=== PATIENT | female | born 1960 | race Caucasian/White ===

== ENCOUNTER 2017-07-20 12:58 | Emergency (ER) | payer BC ==
[2017-07-20 14:28] VITALS: BP 103/64
--- NOTE | 2017-07-20 15:48 | UC ---
Abdominal Pain Female HPI - HPI Summary HPI Summary: ONSET OF CRAMPY, LLQ PAIN YESTERDAY MORNING. FEELS BLOATED. DID NOT SLEEP WELL LAST NIGHT DUE TO DISCOMFORT. DENIES FEVER, N/V/D. DENIES URINARY SX. HAS A H/O KIDNEY STONES BUT STATES THIS FEELS DIFFERENT. HAS HAD LEFT OOPHERECTOMY DUE TO TORSION. - History of Current Complaint Chief Complaint: UCAbdominalPain Stated Complaint: ABD PAIN Time Seen by Provider: 07/20/17 15:24 Hx Obtained From: Patient Onset/Duration: Sudden Onset, Lasting Days - 1 DAY, Still Present Timing: Constant Severity Initially: Moderate Severity Currently: Moderate Pain Intensity: 5 Pain Scale Used: 0-10 Numeric Location: Discrete At: LLQ Radiates: No Character: Cramping Aggravating Factor(s): Nothing Alleviating Factor(s): Nothing Associated Signs and Symptoms: Negative: Fever, Back Pain, Blood in Stool, Urinary Symptoms, Nausea, Vomiting, Diarrhea Allergies/Adverse Reactions: Allergies Allergy/AdvReac Type Severity Reaction Status Date / Time acetaminophen [From Vicodin] Allergy Headache Verified 07/20/17 14:30 amoxicillin Allergy Hives Verified 07/20/17 14:30 hydrocodone [From Vicodin] Allergy migraine Verified 07/20/17 14:31 Sulfa (Sulfonamide Allergy Rash Verified 07/20/17 14:30 Antibiotics) monostat Allergy Hives Uncoded 10/15/13 15:49 Home Medications: Home Medications Bismuth Subsalicylate [Pepto-Bismol] 525 mg PO SEE INSTRUCTIONS PRN 07/20/17 [ History Confirmed 07/20/17] Ca, Magnesium 1 each PO DAILY 07/20/17 [History Confirmed 07/20/17] Cholecalciferol (Vitamin D3) [Vitamin D3] 12,000 units PO DAILY 07/20/17 [ History Confirmed 07/20/17] L.acidoph,Paracasei, B.lactis [Probiotic] 1 each PO DAILY 07/20/17 [History Confirmed 07/20/17] lamoTRIgine [Lamotrigine] 50 mg PO DAILY 07/20/17 [History Confirmed 07/20/17] PMH/Surg Hx/FS Hx/Imm Hx GI/ History: Kidney Stones Neurological History: Migraine - Surgical History Surgical History: Yes Surgery Procedure, Year, and Place: hysterectomy-~2007. left ovary removed ~ 2008. breast biopsy - Family History Known Family History: Negative: Hypertension - Social History Alcohol Use: None Substance Use Type: None Smoking Status (MU): Never Smoked Tobacco Review of Systems Constitutional: Negative Skin: Negative Respiratory: Negative Cardiovascular: Palpitations Gastrointestinal: Abdominal Pain Genitourinary: Negative All Other Systems Reviewed And Are Negative: Yes Physical Exam Triage Information Reviewed: Yes Appearance: Well-Appearing, No Pain Distress, Well-Nourished Vital Signs: Initial Vital Signs Temp 99.8 F 07/20/17 14:17 Pulse 64 07/20/17 14:17 Resp 18 07/20/17 14:17 BP 103/64 07/20/17 14:17 Pulse Ox 100 07/20/17 14:17 Vital Signs Reviewed: Yes Eyes: Positive: Conjunctiva Clear ENT: Positive: Hearing grossly normal Neck: Positive: Supple, Nontender, No Lymphadenopathy Respiratory Exam: Normal Cardiovascular Exam: Normal Abdomen Description: Positive: Soft, CVA Tenderness (L) - EQUIVOCAL, Other: - TTP LLQ. NO REBOUND OR RIGIDITY. Negative: CVA Tenderness (R), Distended, Guarding Bowel Sounds: Positive: Present Musculoskeletal: Positive: No Edema Neurological: Positive: Alert Psychological: Positive: Age Appropriate Behavior Skin: Negative: rashes Diagnostics - Laboratory Diagnostic Studies Completed/Ordered: URINE DIP SP. GR. 1.015, 2+ BLOOD - Radiology CT ABD/PELVIS W/O CONTRAST Xray Interpretation: Positive (See Comments) - THERE IS DIVERTICULOSIS OF THE DISTAL COLON WITH MUCOSAL THICKENING OF THE DISTAL COLON AND ASSOCIATED INFLAMMATORY CHANGE IN SMALL AMOUNT OF FREE FLUID WITHIN THE PELVIS. THE DIFFERENTIAL INCLUDES DIVERTICULITIS OR COLITIS OF THE DISTAL COLON. THERE IS NO LOCULATED FLUID COLLECTION TO SUGGEST ABSCESS. Radiology Interpretation Completed By: Radiologist Abd Pain Female Course/Dx - Differential Dx/Diagnosis Provider Diagnoses: ACUTE DIVERTICULITIS Discharge - Sign-Out/Discharge Documenting (check all that apply): Discharge/Admit/Transfer - Discharge Plan Condition: Stable Disposition: HOME Prescriptions: Ciprofloxacin TAB* [Cipro 500 MG TAB*] 500 mg PO BID #20 tab metroNIDAZOLE [Flagyl 500 MG TAB] 500 mg PO TID #30 tab Patient Education Materials: Diverticulitis (ED), Hematuria (ED), Diverticulitis Diet (ED) Referrals: Fariha Petersen MD [Primary Care Provider] - 2 Weeks Additional Instructions: CT SCAN TODAY IS SUGGESTIVE OF DIVERTICULITIS. TAKE ANTIBIOTICS FOR FULL 10 DAYS. OTC IBUPROFEN NEEDED FOR DISCOMFORT. STAY WELL HYDRATED. AVOID FOODS SUCH NUTS, SEEDS, CORN, RAW/LEAFY VEGGIES DISCUSSED. GO TO THE ER WITHOUT FAIL IF YOU DEVELOP WORSENING PAIN, FEVER, NAUSEA, VOMITING OR ANY OTHER CONCERNING SYMPTOMS. FOLLOW-UP WITH YOUR PCP IN 2 WEEKS TO RECHECK YOUR URINE TO ENSURE THE BLOOD HAS CLEARED. IF NOT YOU WILL NEED TO SEE A UROLOGIST FOR FURTHER EVALUATION. - Billing Disposition and Condition Condition: STABLE Disposition: HOME
--- NOTE | 2017-07-20 16:05 | RAD ---
CLINICAL HISTORY: Left lower quadrant pain, hematuria COMPARISON: March 09, 2007 TECHNIQUE: Multiple contiguous axial CT scans were obtained of the abdomen and pelvis, without intravenous contrast enhancement. Coronal and sagittal multiplanar reformations are submitted for review. Oral contrast was not administered. FINDINGS: The study is limited by the lack of intravenous contrast. This limits evaluation of the solid organs and vasculature. LUNG BASES: The lung bases are clear. LIVER: The liver is normal in shape, size, contour, and attenuation. BILE DUCTS: There is no intrahepatic or extrahepatic biliary dilatation. GALLBLADDER: The gallbladder is normal, without pericholecystic inflammatory change. PANCREAS: The pancreas is normal, without mass or ductal dilatation. SPLEEN: Normal in size and appearance. UPPER GI TRACT: Evaluation of the gastrointestinal tract is limited by incomplete gastric distention. The upper GI tract is unremarkable. SMALL BOWEL AND MESENTERY: The small bowel is normal in contour, course, and caliber. There is no obstruction or dilatation. COLON: There is mucosal thickening of the distal sigmoid colon. Multiple diverticula are noted. There is stranding of the pericolic fat with small amount of free fluid within the pelvis. There is a tubular, vermiform, hollow viscus that is blind ending, and originates from the cecum, consistent with a normal appendix. There is no periappendiceal inflammatory change. This is best seen on axial images 70 through 104 ADRENALS: Normal bilaterally. KIDNEYS: The kidneys are normal in shape, size, contour, and axis. There is no hydronephrosis or nephrolithiasis. BLADDER: The bladder is smooth in contour. PELVIC ORGANS: The pelvic organs are not visualized. AORTA: The aorta is normal. IVC: Unremarkable LYMPH NODES: There is no lymphadenopathy by size criteria. ABDOMINAL WALL: There is no evidence for abdominal wall hernia. BONES AND SOFT TISSUES: Mild degenerative changes are noted. OTHER: None IMPRESSION: THERE IS DIVERTICULOSIS OF THE DISTAL COLON WITH MUCOSAL THICKENING OF THE DISTAL COLON AND ASSOCIATED INFLAMMATORY CHANGE IN SMALL AMOUNT OF FREE FLUID WITHIN THE PELVIS. THE DIFFERENTIAL INCLUDES DIVERTICULITIS OR COLITIS OF THE DISTAL COLON. THERE IS NO LOCULATED FLUID COLLECTION TO SUGGEST ABSCESS.
== END 2017-07-20 16:23 | disposition home or self-care (01) ==
LOC: UCCORT 12:58
DX: K57.92 Diverticulitis of intestine, part unspecified, without perforation or abscess without bleeding (principal); Z88.6 Allergy status to analgesic agent; Z88.0 Allergy status to penicillin; Z88.8 Allergy status to other drugs, medicaments and biological substances
CPT/HCPCS: 74176; 81003; 99212; G0463

== ENCOUNTER 2019-05-04 11:02 | Emergency (ER) | payer BC ==
[2019-05-04 14:00] VITALS: BP 99/65
--- NOTE | 2019-05-04 14:10 | UC ---
Lower Extremity/Ankle HPI - HPI Summary HPI Summary: 58-year-old female presenting with left lateral foot pain 2-3 weeks. Denies known trauma or injury other than back in January when she stepped off of a curb and landed wrong on that foot. States that that pain resolved after a few days without any treatment. Denies any swelling or bruising. Denies decreased range of motion. Denies numbness and tingling. Denies difficulty ambulating. Does note that the pain is worse with involuting and weightbearing. Patient states she does a lot of walking around the chart for exercise." - History of Current Complaint Chief Complaint: UCLowerExtremity Stated Complaint: LEFT FOOT PAIN Hx Obtained From: Patient Pain Intensity: 1 Pain Scale Used: 0-10 Numeric - Allergies/Home Medications Allergies/Adverse Reactions: Allergies Allergy/AdvReac Type Severity Reaction Status Date / Time acetaminophen [From Vicodin] Allergy Headache Verified 05/04/19 14:00 amoxicillin Allergy Hives Verified 05/04/19 14:00 hydrocodone [From Vicodin] Allergy migraine Verified 05/04/19 14:00 Sulfa (Sulfonamide Allergy Rash Verified 05/04/19 14:00 Antibiotics) monostat Allergy Hives Uncoded 05/04/19 14:00 Home Medications: Home Medications Fremanezumab-Vfrm [Ajovy] 225 mg SQ MONTHLY 05/04/19 [History Confirmed 05/04/19 ] PMH/Surg Hx/FS Hx/Imm Hx - Surgical History Surgical History: Yes Surgery Procedure, Year, and Place: hysterectomy-~2007. left ovary removed ~ 2008. breast biopsy - Family History Known Family History: Negative: Hypertension - Social History Alcohol Use: None Substance Use Type: None Smoking Status (MU): Never Smoked Tobacco Review of Systems All Other Systems Reviewed And Are Negative: No Constitutional: Positive: Negative Skin: Positive: Negative Respiratory: Positive: Negative Cardiovascular: Positive: Negative Neurovascular: Positive: Negative Musculoskeletal: Positive: Arthralgia - L lateral foot. Negative: Decreased ROM , Edema Neurological/Mental Status: Positive: Negative. Negative: Paresthesia, Numbness Physical Exam - Summary Physical Exam Summary: Vital Signs Reviewed: Yes A+Ox3, no distress Eyes: Conjunctiva Clear ENT: Hearing grossly normal neck: supple Respiratory: Positive: No respiratory distress, No accessory muscle use Cardiovascular: skin color reflect adequate perfusion Musculoskeletal Exam: +minimal TTP of left forefoot at base of fifth toe and fifth metatarsal, no edema, no ecchymosis or erythema, sensation grossly intact , strong pedal pulse, ROM intact Neurological: Positive: Alert, ambulatory without difficulty Psychological: Positive: age appropriate behavior Skin: Positive: no rash, no ecchymosis Vital Signs: Initial Vital Signs Temp 99.1 F 05/04/19 13:51 Pulse 59 05/04/19 13:51 Resp 18 05/04/19 13:51 BP 99/65 05/04/19 13:51 Pulse Ox 100 05/04/19 13:51 Diagnostics - Radiology left foot Radiology Interpretation Completed By: Radiologist Summary of Radiographic Findings: 3 views of left foot demonstrates no fracture. No other bone or joint abnormality is identified. IMPRESSION: No fracture of the left foot is noted. Lower Extremity Course/Dx - Course Course Of Treatment: Discussed negative radiographs with patient. Instructed to continue with rest, ice, and to use the post op shoe for pain relief. Instructed to refrain from physical activity and follow up with orthopedics for further eval. Patient voiced understanding and agreed with treatment plan. - Differential Dx/Diagnosis Differential Diagnosis/HQI/PQRI: Arthritis, Contusion, Fracture (Closed), Sprain , Strain, Tendonitis Provider Diagnosis: Pain in left foot Discharge ED - Sign-Out/Discharge Documenting (check all that apply): Patient Departure All imaging exams completed and their final reports reviewed: Yes - Discharge Plan Condition: Stable Disposition: HOME Patient Education Materials: Metatarsalgia (DC) Referrals: Fariha Petersen MD [Primary Care Provider] - Gamaliel Nelson MD [Medical Doctor] - 1 Week Additional Instructions: Your radiographs were normal today. Rest, ice, and use the post op shoe to help alleviate pain. You may also take ibuprofen as directed. Refrain from strenuous physical activity until pain has fully resolved. Follow up with the orthopedics referral listed below for further evaluation of your foot pain. - Billing Disposition and Condition Condition: STABLE Disposition: Home - Attestation Statements Provider Attestation: This patient was not seen by me. I was available for consult. Chart reviewed. JAY
== END 2019-05-04 14:55 | disposition home or self-care (01) ==
LOC: UCCORT 11:02
DX: M79.672 Pain in left foot (principal); Z88.0 Allergy status to penicillin; Z88.2 Allergy status to sulfonamides; Z88.5 Allergy status to narcotic agent; Z88.8 Allergy status to other drugs, medicaments and biological substances
CPT/HCPCS: 99212; G0463